=== PATIENT | female | born 1995 | race African-American/Black ===

== ENCOUNTER 2019-06-04 22:40 | Inpatient (IN) ==
[2019-06-04] MEDS ORDERED: BUTORPHANOL 2 MG/ML VIAL IV PRN (23:01)
[2019-06-04] MEDS ORDERED: ONDANSETRON 4 MG/2 ML VIAL IV PRN (23:01)
[2019-06-04] MEDS ORDERED: LACTATED RINGERS 500 ML IV PRN (23:01)
[2019-06-04] MEDS ORDERED: MEPERIDINE 50 MG/1 ML VIAL IV PRN (23:01)
[2019-06-04 23:28] LABS: Basophils % 0.3 % (0.0-0.8); Eosinophils # 0.1 10*3/uL (0.0-0.87); Eosinophils % 0.6 % (0.00-10.9); Hematocrit 32.1 VOL% (35.7-47.0); Hemoglobin 10.5 GM/DL (12.0-16.0); Immature Granulocytes % 0.4 %; Immature Granulocytes Absolute 0.04 #; Lymphocytes # 2.5 10*3/uL (1.4-4.0); Lymphocytes % 27.5 % (21.3-54.2); Mean Corpuscular HGB Conc 32.7 GM/DL (32-36); Mean Corpuscular Volume 87.7 FL (87-102); Mean Platelet Volume 8.9 FL (9.6-12.0); Monocytes % 6.8 % (1.7-12.7); Neutrophils % 64.4 % (38.7-73.9); Platelet Count 310 T/CUMM (130-400); Red Blood Count 3.66 MC/CUMM (3.8-5.5); Red Cell Distribution Width 13.1 % (9.3-17.3); White Blood Count 8.9 T/CUMM (4-12)
[2019-06-04] MEDS: LACTATED RINGERS 1,000 ML IV SCH (23:35)
[2019-06-05] MEDS ORDERED: diphenhydrAMINE 50 MG/1 ML VIAL IV PRN ×2 (03:04)
[2019-06-05] MEDS ORDERED: NALOXONE 0.4 MG/ML VIAL IV PRN (03:04)
[2019-06-05] MEDS ORDERED: fentaNYL 2 MCG/ROPIV 0.2% EPID 100 ML EPIDURAL PRN (03:04)
[2019-06-05] MEDS ORDERED: PROMETHAZINE 25 MG/1 ML VIAL IM ONE (03:04)
[2019-06-05] MEDS ORDERED: ePHEDrine 50 MG/ML AMP IV PRN (03:04)
[2019-06-05] MEDS ORDERED: hydrOXYzine HCL 25 MG/1 ML VIAL IM PRN (03:04)
[2019-06-05] MEDS ORDERED: FAMOTIDINE 20 MG/2 ML VIAL IV PRN (03:05)
[2019-06-05] MEDS ORDERED: CITRIC ACID/SODIUM CITRATE 30 ML UDCUP PO PRN (03:06)
[2019-06-05] MEDS: LACTATED RINGERS 1,000 ML IV SCH (05:18)
[2019-06-05] MEDS ORDERED: OXYTOCIN/LR 20 UNIT/1,000 ML BAG IV SCH (07:00)
[2019-06-05] MEDS ORDERED: LACTATED RINGERS 1,000 ML IV ONE (07:14)
[2019-06-05] MEDS ORDERED: miSOPROStoL 200 MCG TABLET ONE (08:02)
[2019-06-05] MEDS ORDERED: TRANEXAMIC ACID 1,000 MG/10 ML VIAL ONE (08:02)
[2019-06-05] MEDS ORDERED: OXYTOCIN/LR 0 UNIT/0 ML BAG IV ONE (08:02)
[2019-06-05] MEDS ORDERED: CARBOPROST TROMETHAMINE 250 MCG/ML AMP IM ONE (08:03)
[2019-06-05] MEDS ORDERED: METHYLERGONOVINE 0.2 MG/1 ML AMP ONE (08:03)
[2019-06-05] MEDS ORDERED: HYDROCORTISONE 2.5% RECTAL CREAM 30 GM TUBE TOP PRN (08:38)
[2019-06-05] MEDS ORDERED: DIPH/TET/ACEL PERT BOOSTER VACCINE 0.5 ML VIAL IM ONE (08:38)
[2019-06-05] MEDS ORDERED: ONDANSETRON 4 MG/2 ML VIAL IV PRN (08:38)
[2019-06-05] MEDS ORDERED: OXYTOCIN/LR 20 UNIT/1,000 ML BAG IV ONE (08:38)
[2019-06-05] MEDS ORDERED: RHO(D) IMMUNE GLOBULIN 300 MCG SYRINGE IM ONE (08:38)
[2019-06-05] MEDS ORDERED: LANOLIN 50% CREAM 0.3 OZ TUBE TOP PRN (08:38)
[2019-06-05] MEDS ORDERED: BENZOCAINE 20%/MENTHOL 0.5% SPRAY 56 GM CAN TOP PRN (08:38)
[2019-06-05] MEDS ORDERED: WITCH HAZEL PADS 100/JAR TOP PRN (08:38)
[2019-06-05] MEDS ORDERED: BISACODYL 10 MG SUPP RECTAL PRN (08:38)
[2019-06-05] MEDS ORDERED: ACETAMINOPHEN 325 MG TABLET PO PRN (08:38)
[2019-06-05] MEDS ORDERED: MEASLES/MUMPS/RUBELLA VACCINE 0.5 ML VIAL SUBCUT ONE (08:38)
[2019-06-05] MEDS: oxyCODONE/ACETAMINOPHEN 5-325 MG TABLET PO PRN ×3 (11:36→20:05)
[2019-06-05] MEDS: IBUPROFEN 800 MG TABLET PO PRN ×2 (12:54→20:05)
[2019-06-05] MEDS: DOCUSATE SODIUM 100 MG CAPSULE PO SCH ×2 (13:11→20:06)
[2019-06-06] MEDS ORDERED: diphenhydrAMINE CAP 25 MG CAPSULE PO PRN (00:30)
[2019-06-06 05:49] LABS: Basophils % 0.3 % (0.0-0.8); Eosinophils # 0.1 10*3/uL (0.0-0.87); Eosinophils % 0.8 % (0.00-10.9); Hematocrit 26.2 VOL% (35.7-47.0); Hemoglobin 8.4 GM/DL (12.0-16.0); Immature Granulocytes % 0.3 %; Immature Granulocytes Absolute 0.03 #; Lymphocytes # 2.6 10*3/uL (1.4-4.0); Lymphocytes % 29.3 % (21.3-54.2); Mean Corpuscular HGB Conc 32.1 GM/DL (32-36); Mean Corpuscular Volume 87.6 FL (87-102); Mean Platelet Volume 9.4 FL (9.6-12.0); Monocytes % 7.4 % (1.7-12.7); Neutrophils % 61.9 % (38.7-73.9); Platelet Count 236 T/CUMM (130-400); Red Blood Count 2.99 MC/CUMM (3.8-5.5); White Blood Count 8.7 T/CUMM (4-12)
[2019-06-06] MEDS: DOCUSATE SODIUM 100 MG CAPSULE PO SCH ×2 (09:36→20:09)
[2019-06-06] MEDS: oxyCODONE/ACETAMINOPHEN 5-325 MG TABLET PO PRN ×2 (09:40→20:09)
[2019-06-07 07:41] VITALS: BP 135/83
[2019-06-07] MEDS: DOCUSATE SODIUM 100 MG CAPSULE PO SCH (08:40)
[2019-06-07] MEDS: oxyCODONE/ACETAMINOPHEN 5-325 MG TABLET PO PRN (08:41)
[2019-06-07] MEDS: IBUPROFEN 800 MG TABLET PO PRN (08:41)
== END 2019-06-07 13:20 | disposition home or self-care (01) | DRG 560 ==
LOC: N.LDOUT 22:40 → N.LD 22:42 → N.OB 06-05 11:25
PROVIDERS: ADMIT Specialist; ATTEND Specialist